=== PATIENT | male | born 1965 | race Caucasian/White ===

== ENCOUNTER 2017-01-17 21:07 | Emergency (ER) | payer SELFPAY ==
--- NOTE | 2017-01-17 22:18 | ED NURSING NOTES ---
Clinical Report - Nurses [facility] [place] [address] 01/17/2017 21:08 Patient: CHIP GREEN TRIAGE Triage time 21:18. Acuity: LEVEL 3. Chief Complaint: Location of symptoms- (Right Thumb laceration). --21:23 Sheriff Alicea R.N. 21:18 01/17/17. BP: 146/98. HR: 94. RR: 20. O2 saturation: 98%. Temp: 97.9 F. Pain level now: 02/24. --21:23 Sheriff Alicea R.N. Weight: 67.1 kg stated. Height/Length: 68 inches Per Patient. BMI: 22.5. --21:22 Sheriff Alicea R.N. Medications Ibuprofen Oral. --21:20 Sheriff Alicea R.N. Allergies Codeine. --21:20 Sheriff Alicea R.N. History Arrived by private vehicle. Historian: patient. Accompanied by family. Injury occurred. Location of injuries: right thumb. Occurred at home. PAST MEDICAL HX: Tetanus status: more than 5 years ago. SURGERY HX: Hernia repair. Inguinal hernia repair. ( Right Leg). SOCIAL HX: Smoker- current status unknown (Chews Tobacco). Occasional alcohol use. No drug use. FALL RISK ASSESSMENT: Fall risk assessment completed. No fall risk identified. NUTRITIONAL RISK ASSESSMENT: The nutritional risk assessment revealed no deficiencies. FUNCTIONAL ASSESSMENT: Functional assessment: no impairments noted. LEARNING NEEDS ASSESSMENT: The learning needs assessment revealed no barriers. SKIN INTEGRITY ASSESSMENT: Skin integrity risk assessment completed. No skin integrity risk identified. --21:23 Sheriff Alicea R.N. PROBLEMS: Hypertension. Lower Extremity Pain. --21:20 Sheriff Alicea R.N. PHYSICAL ASSESSMENT Ambulatory to room. GENERAL / NEURO / PSYCH: Oriented X 4. Alert. Appears in no acute distress. Appears in pain. EXTREMITIES: Right thumb: deep laceration with controlled bleeding. SKIN: Skin intact. Skin is warm and dry. --21:24 Sheriff Alicea R.N. NURSING PROGRESS NOTES Two patient identifiers checked. Call light placed in reach. Side rails up x 2. Bed placed in lowest position. Brakes of bed on. --21:24 Sheriff Alicea R.N. 21:35 01/17/2017 TDAP IM 0.5 mL given. (Lot#: [id number], expiration date: 12/21/2018, Resident Advisor: sanofi pasteur). Given in the left deltoid. Allergies verified and confirmed 5 rights. Vaccine information statement provided to the patient. --21:36 Sheriff Alicea R.N. Applied dressing, following the application of antibiotic ointment. Secured with tube gauze (5510). --22:27 Alis Andrade. DISPOSITION / DISCHARGE No learning barriers present. Discharge instructions provided and reviewed with the patient. Patient verbalized understanding. Written instructions provided in Chinese. The patient was discharged by the physician. He was discharged home and accompanied by family. He left the Emergency Department ambulatory and via private vehicle. Family member driving. --22:34 Sheriff Alicea R.N. Locked/Released at 01/17/2017 22:35 by Sheriff Alicea R.N.
--- NOTE | 2017-01-17 22:18 | ED NURSING NOTES ---
Clinical Report - Nurses [facility] [place] [address] 01/17/2017 21:08 Patient: CIHP GREEN TRIAGE Triage time 21:18. Acuity: LEVEL 3. Chief Complaint: Location of symptoms- (Right Thumb laceration). --21:23 Sheriff Alicea R.N. 21:18 01/17/17. BP: 146/98. HR: 94. RR: 20. O2 saturation: 98%. Temp: 97.9 F. Pain level now: 02/24. --21:23 Sheriff Alicea R.N. Weight: 67.1 kg stated. Height/Length: 68 inches Per Patient. BMI: 22.5. --21:22 Sheriff Alicea R.N. Medications Ibuprofen Oral. --21:20 Sheriff Alicea R.N. Allergies Codeine. --21:20 Sheriff Alicea R.N. History Arrived by private vehicle. Historian: patient. Accompanied by family. Injury occurred. Location of injuries: right thumb. Occurred at home. PAST MEDICAL HX: Tetanus status: more than 5 years ago. SURGERY HX: Hernia repair. Inguinal hernia repair. ( Right Leg). SOCIAL HX: Smoker- current status unknown (Chews Tobacco). Occasional alcohol use. No drug use. FALL RISK ASSESSMENT: Fall risk assessment completed. No fall risk identified. NUTRITIONAL RISK ASSESSMENT: The nutritional risk assessment revealed no deficiencies. FUNCTIONAL ASSESSMENT: Functional assessment: no impairments noted. LEARNING NEEDS ASSESSMENT: The learning needs assessment revealed no barriers. SKIN INTEGRITY ASSESSMENT: Skin integrity risk assessment completed. No skin integrity risk identified. --21:23 Sheriff Alicea R.N. PROBLEMS: Hypertension. Lower Extremity Pain. --21:20 Sheriff Alicea R.N. PHYSICAL ASSESSMENT Ambulatory to room. GENERAL / NEURO / PSYCH: Oriented X 4. Alert. Appears in no acute distress. Appears in pain. EXTREMITIES: Right thumb: deep laceration with controlled bleeding. SKIN: Skin intact. Skin is warm and dry. --21:24 Sheriff Alicea R.N. NURSING PROGRESS NOTES Two patient identifiers checked. Call light placed in reach. Side rails up x 2. Bed placed in lowest position. Brakes of bed on. --21:24 Sheriff Alicea R.N. 21:35 01/17/2017 TDAP IM 0.5 mL given. (Lot#: [id number], expiration date: 12/21/2018, Waste Water Operator: sanofi pasteur). Given in the left deltoid. Allergies verified and confirmed 5 rights. Vaccine information statement provided to the patient. --21:36 Sheriff Alicea R.N. Applied dressing, following the application of antibiotic ointment. Secured with tube gauze ([id number]). --22:27 Alis Andrade. DISPOSITION / DISCHARGE No learning barriers present. Discharge instructions provided and reviewed with the patient. Patient verbalized understanding. Written instructions provided in Malay. The patient was discharged by the physician. He was discharged home and accompanied by family. He left the Emergency Department ambulatory and via private vehicle. Family member driving. --22:34 Sheriff Alicea R.N. Locked/Released at 01/17/2017 22:35 by Sheriff Alicea R.N.
--- NOTE | 2017-01-17 22:18 | ED ORDER SUMMARY ---
..... Patient: CHIP GREEN OrderSheet [facility] VisitID: [id number] [address] [place] [address] 51y, M Registration Date/Time: 01/17/2017 ORDER SHEET Weight: 67.1 kg (stated) Allergies: Codeine GENERAL ORDERS: Wound Set-up: (21:16 01/17/2017 Mile ROSENBERG) (21:54 AScuck) Dress Wounds (22:08 01/17/2017 Mile ROSENBERG) (22:24 Chris) MEDICATION ORDERS: Tdap IM 0.5 mL (per protocol) (21:16 01/17/2017 Mile ROSENBERG) (21:36 Alexis R.N.) IV FLUIDS: ORDER SHEET NOTES: [Electronically signed by Sheriff Ligia Alicea (22:35 01/17/2017)] [Electronically signed by John Hammer MD (03:06 01/29/2017)] [Electronically locked/signed by Sheriff Ligia Alicea (22:35 01/17/2017)]
--- NOTE | 2017-01-17 22:18 | ED CLINICAL REPORT ---
Clinical Report - Physicians/Mid Levels [facility] [address] [place] [address] 01/17/2017 21:08 [id number] Time Seen: 21:15 Jan 17 2017. Arrived- By private vehicle. Historian- patient. CPT: ER phys charges level 3 plus (#694707). HISTORY OF PRESENT ILLNESS Chief Complaint: Injury to the right thumb. The injury happened just prior to arrival. The patient sustained a laceration from a sharp edge. Occurred at home. Patient is experiencing moderate pain. No other injury. REVIEW OF SYSTEMS The patient sustained a laceration. No swelling, tingling, numbness, weakness or foreign body. All systems otherwise negative, except as recorded above. PAST HISTORY See nurses notes. Hernia repair. Inguinal hernia repair. ( Right Leg). Hypertension. Lower Extremity Pain. He has not had a prior injury to the same area. Last tetanus immunization was more than 5 years ago. Medications: Ibuprofen Oral. Allergies: Codeine. SOCIAL HISTORY Never smoker. Occasional alcohol use. No drug use. ADDITIONAL NOTES The nursing notes have been reviewed. PHYSICAL EXAM Vital Signs: 01/17/2017 21:18 BP: 146/98. HR: 94. RR: 20. O2 saturation: 98%. Temp: 97.9 F. Pain level now: 8/10. Appearance: Alert. Anxious. Patient in mild distress. Skin: Skin warm and dry. Extremities: Right thumb: mild tenderness and subcutaneous laceration of the dorsal aspect. SEE LACERATION PROCEDURE NOTE. Neurovascular intact distally. No deformity. No limitation in movement. No wrist injury. Neuro, Vascular and Tendons: Vascular status intact. Sensation intact. Motor intact. Tendon function intact. Neuro: Oriented X 3. No motor deficit. No sensory deficit. PROGRESS AND PROCEDURES Laceration Repair: Location: right thumb. Length: 2.5cm. Complexity: simple (local anesthesia used and sutured). Wound depth/shape- subcutaneous and linear. Wound is clean. Distal neuro/vascular/tendon status normal. Local anesthesia provided using 2% lidocaine with bicarb. Prepped with Hibiclens. Wound explored, cleansed, irrigated and examined to the base in bloodless field extensively with normal saline. Closure of skin: interrupted 5-0 (3 sutures). Post-procedure: he is stable and there are no complications. Bleeding is controlled and neuro-vascular status is intact distal to the wound. Dressing applied. Tetanus immunization given. Estimated blood loss: 0 mL. Patient/family counseled. Disposition: Discharged. Condition: stable and improved. CLINICAL IMPRESSION Single deep laceration to the right thumb.No foreign body present or right fingernail injury. INSTRUCTIONS Protect wound and keep wound area clean. Change dressing twice daily. Keep wounds dry. You may wash wounds briefly, then dry. Apply neosporin twice daily. Sutures should be removed in seven days. Limit use of your right hand until better. Your Current Medications: STOP TAKING THE FOLLOWING MEDICATIONS: Ibuprofen Oral. OTC Medications: Acetaminophen (available over the counter): take according to label instructions. Follow-up: Follow up with your doctor in one week. Call for an appointment. Understanding of the discharge instructions verbalized by patient and family. Discharge instructions reviewed with and understanding was verbalized by spouse. (Electronically signed by John Hammer MD 01/29/2017 3:06)
--- NOTE | 2017-01-17 22:18 | ED CLINICAL REPORT ---
Clinical Report - Physicians/Mid Levels [facility] [address] [place] [address] 01/17/2017 21:08 [id number] Time Seen: 21:15 Jan 17 2017. Arrived- By private vehicle. Historian- patient. CPT: ER phys charges level 3 plus (#[id number]). HISTORY OF PRESENT ILLNESS Chief Complaint: Injury to the right thumb. The injury happened just prior to arrival. The patient sustained a laceration from a sharp edge. Occurred at home. Patient is experiencing moderate pain. No other injury. REVIEW OF SYSTEMS The patient sustained a laceration. No swelling, tingling, numbness, weakness or foreign body. All systems otherwise negative, except as recorded above. PAST HISTORY See nurses notes. Hernia repair. Inguinal hernia repair. ( Right Leg). Hypertension. Lower Extremity Pain. He has not had a prior injury to the same area. Last tetanus immunization was more than 5 years ago. Medications: Ibuprofen Oral. Allergies: Codeine. SOCIAL HISTORY Never smoker. Occasional alcohol use. No drug use. ADDITIONAL NOTES The nursing notes have been reviewed. PHYSICAL EXAM Vital Signs: 01/17/2017 21:18 BP: 146/98. HR: 94. RR: 20. O2 saturation: 98%. Temp: 97.9 F. Pain level now: 8/10. Appearance: Alert. Anxious. Patient in mild distress. Skin: Skin warm and dry. Extremities: Right thumb: mild tenderness and subcutaneous laceration of the dorsal aspect. SEE LACERATION PROCEDURE NOTE. Neurovascular intact distally. No deformity. No limitation in movement. No wrist injury. Neuro, Vascular and Tendons: Vascular status intact. Sensation intact. Motor intact. Tendon function intact. Neuro: Oriented X 3. No motor deficit. No sensory deficit. PROGRESS AND PROCEDURES Laceration Repair: Location: right thumb. Length: 2.5cm. Complexity: simple (local anesthesia used and sutured). Wound depth/shape- subcutaneous and linear. Wound is clean. Distal neuro/vascular/tendon status normal. Local anesthesia provided using 2% lidocaine with bicarb. Prepped with Hibiclens. Wound explored, cleansed, irrigated and examined to the base in bloodless field extensively with normal saline. Closure of skin: interrupted 5-0 (3 sutures). Post-procedure: he is stable and there are no complications. Bleeding is controlled and neuro-vascular status is intact distal to the wound. Dressing applied. Tetanus immunization given. Estimated blood loss: 0 mL. Patient/family counseled. Disposition: Discharged. Condition: stable and improved. CLINICAL IMPRESSION Single deep laceration to the right thumb.No foreign body present or right fingernail injury. INSTRUCTIONS Protect wound and keep wound area clean. Change dressing twice daily. Keep wounds dry. You may wash wounds briefly, then dry. Apply neosporin twice daily. Sutures should be removed in seven days. Limit use of your right hand until better. Your Current Medications: STOP TAKING THE FOLLOWING MEDICATIONS: Ibuprofen Oral. OTC Medications: Acetaminophen (available over the counter): take according to label instructions. Follow-up: Follow up with your doctor in one week. Call for an appointment. Understanding of the discharge instructions verbalized by patient and family. Discharge instructions reviewed with and understanding was verbalized by spouse. (Electronically signed by John Hammer MD 01/29/2017 3:06)
--- NOTE | 2017-01-17 22:18 | ED ORDER SUMMARY ---
..... Patient: CHIP GREEN OrderSheet [facility] VisitID: [id number] [address] [place] [address] 51y, M Registration Date/Time: 01/17/2017 ORDER SHEET Weight: 67.1 kg (stated) Allergies: Codeine GENERAL ORDERS: Wound Set-up: (21:16 01/17/2017 Mile ROSENBERG) (21:54 AScuck) Dress Wounds (22:08 01/17/2017 Mile ROSENBERG) (22:24 Chris) MEDICATION ORDERS: Tdap IM 0.5 mL (per protocol) (21:16 01/17/2017 Mile ROSENBERG) (21:36 Alexis R.N.) IV FLUIDS: ORDER SHEET NOTES: [Electronically signed by Sheriff Ligia Alicea (22:35 01/17/2017)] [Electronically signed by John Hammer MD (03:06 01/29/2017)] [Electronically locked/signed by Sheriff Ligia Alicea (22:35 01/17/2017)]
--- NOTE | 2017-01-29 03:06 | ED MED RECONCILIATION SUMMARY ---
Patient: CHIP GREEN Medication Reconciliation Report [facility] VisitID: [id number] [address] [place] [address] 51y, M Registration Date/Time: 01/17/2017 Weight: 67.1 kg Height/Length: 68 in. BMI: 22.5 ALLERGIES: Codeine The patient's Home Medications are listed below: STOP TAKING THE FOLLOWING MEDICATIONS: Ibuprofen Oral The source(s) of the original Home Medication information: Not obtained. The following Medications were given to the patient in the Emergency Department: TDAP [IM] IM 0.5 mL, administered: 01/17/2017 9:35:00 PM The following Medications were prescribed to the patient: Acetaminophen (available over the counter): take according to label instructions. -- John Hammer MD
--- NOTE | 2017-01-29 03:06 | ED MED RECONCILIATION SUMMARY ---
Patient: CHIP GREEN Medication Reconciliation Report [facility] VisitID: [id number] [address] [place] [address] 51y, M Registration Date/Time: 01/17/2017 Weight: 67.1 kg Height/Length: 68 in. BMI: 22.5 ALLERGIES: Codeine The patient's Home Medications are listed below: STOP TAKING THE FOLLOWING MEDICATIONS: Ibuprofen Oral The source(s) of the original Home Medication information: Not obtained. The following Medications were given to the patient in the Emergency Department: TDAP [IM] IM 0.5 mL, administered: 01/17/2017 9:35:00 PM The following Medications were prescribed to the patient: Acetaminophen (available over the counter): take according to label instructions. -- John Hammer MD
--- NOTE | 2017-01-29 03:06 | ED MAR SUMMARY ---
..... Medication Administration Record [facility] [address] [place] [address] Patient: CHIP GEREN Visit ID: [id number] 51y, M Weight: 67.1 kg Height/Length: 68 in BMI: 22.5 ALLERGIES: Codeine Given 21:35 01/17/2017 Sheriff Alicea R.N. Medication Administered: TDAP [IM], Dose: 0.5 mL IM. Medication Ordered: Tdap IM 0.5 mL (per protocol).
--- NOTE | 2017-01-29 03:06 | ED MAR SUMMARY ---
..... Medication Administration Record Merged With [facility] [address] [place] [address] Patient: CHIP GREEN Visit ID: [id number] 51y, M Weight: 67.1 kg Height/Length: 68 in BMI: 22.5 ALLERGIES: Codeine Given 21:35 01/17/2017 Sheriff Alicea R.N. Medication Administered: TDAP [IM], Dose: 0.5 mL IM. Medication Ordered: Tdap IM 0.5 mL (per protocol).
--- NOTE | 2017-01-29 03:06 | ED DISCHARGE INSTRUCTIONS ---
Patient: CHIP GREEN General Instructions [facility] VisitID: [id number] [place] [address] 51y, M Registration Date/Time: 01/17/2017 Single deep laceration to the right thumb.No foreign body present or right fingernail injury. INSTRUCTIONS Protect wound and keep wound area clean. Change dressing twice daily. Keep wounds dry. You may wash wounds briefly, then dry. Apply neosporin twice daily. Sutures should be removed in seven days. Limit use of your right hand until better. Your Current Medications: STOP TAKING THE FOLLOWING MEDICATIONS: Ibuprofen Oral. OTC Medications: Acetaminophen (available over the counter): take according to label instructions. Follow-up: Follow up with your doctor in one week. Call for an appointment. Understanding of the discharge instructions verbalized by patient and family. Discharge instructions reviewed with and understanding was verbalized by spouse. ADDITIONAL INFORMATION Laceration (All Closures) Alaceration is a cut through the skin. This will usually require stitches (sutures) or annamarie if it is deep. Minor cuts may be treated with a surgical tape closure orskin glue. Home care The following guidelines will help you care for your laceration at home: Extremity, face, or trunk wounds Keep the wound clean and dry. If a bandage was applied and it becomes wet or dirty, replace it. Otherwise, leave it in place for the first 24 hours. If stitches or annamarie were used, clean the wound daily. After removing the bandage, wash the area with soap and water. Use a wet cotton swab to loosen and remove any blood or crust that forms. The doctor may prescribe an antibiotic cream or ointment to prevent infection. Do not stop taking this medication until you have finished the prescribed course or the doctor tells you to stop. The doctor may also prescribe medications for pain. Follow the doctors instructions for taking these medications. You may remove the bandage to shower as usual after the first 24 hours, but do not soak the area in water (no swimming) until the stitches or annamarie are removed. If surgical tape was used, keep the area clean and dry. If it becomes wet, blot it dry with a towel. If skin glue was used, do not scratch, rub, or pick at the adhesive film. Do not place tape directly over the film. Do not apply liquid, ointment, or creams to the wound while the film is in place. Do not clean the wound with peroxide and do not apply ointments. Avoid activities that cause heavy sweating until the film has fallen off. Protect the wound from prolonged exposure to sunlight or tanning lamps. You may shower as usual but do not soak the wound in water (no baths or swimming). The film will fall off by itself in 510 days. Scalp wounds During the first two days, you may carefully rinse your hair in the shower to remove blood, glass or dirt particles. After two days, you may shower and shampoo your hair normally. Do not soak your scalp in the tub or go swimming until the stitches or annamarie have been removed. Talk with your doctor before applying any antibiotic ointment to the wound. Mouth wounds Eat soft foods to reduce pain. If the cut is inside of your mouth, clean by rinsing after each meal and at bedtime with a mixture of equal parts water and hydrogen peroxide (do not swallow!). Or, you can use a cotton swab to directly apply hydrogen peroxide onto the cut. Mouth wounds can be painful when eating. You may use an [id number]-[id number] local numbing solution for pain relief. If this is not available, you may use any numbing solution for teething babies. You may apply this directly to the sores with a cotton-tip swab or with your finger. Follow-up care Follow up with your health care provider. Most skin wounds heal within ten days. Mouth and facial wounds heal within five days. However, even with proper treatment, a wound infection may sometimes occur. Therefore, you should check the wound daily for signs of infection listed below. Stitches should be removed from the face within five days; stitches and annamarie should be removed from other parts of the body within 714 days. If dissolving stitches were used in the mouth, these will fall out or dissolve without the need for removal. If tape closures were used, remove them yourself if they have not fallen off after 7 days. Ifskin glue was used, the film will fall off by itself in 510 days. When to seek medical care Get prompt medical attention if any of these occur: Bleeding not controlled by direct pressure Signs of infection, including increasing pain in the wound, increasing wound redness or swelling, or pus coming from the wound Fever of 100.4F (38C) or higher, or as directed by your health care provider Stitches or annamarie come apart or fall out or surgical tape falls off before 7 days Wound edges re-open Bandage Change If the bandage becomes wet or dirty, replace it. Otherwise, leave it in place for the first 24 hours. Then once a day: After removing the bandage, wash the area with soap and water. Use a wet cotton swab to loosen and remove any blood or crust that forms on the wound. After cleaning, apply a thin layer of antibiotic ointment or cream. Reapply the bandage. You may shower as usual after the first 24 hours. If the bandage is on an arm or leg, cover it with a plastic bag rubber banded at both ends before showering. No tub baths or swimming until the bandage is removed and the wound healed (at least 7 days). Laceration (All Closures) Alaceration is a cut through the skin. This will usually require stitches (sutures) or annamarie if it is deep. Minor cuts may be treated with a surgical tape closure orskin glue. Home care The following guidelines will help you care for your laceration at home: Extremity, face, or trunk wounds Keep the wound clean and dry. If a bandage was applied and it becomes wet or dirty, replace it. Otherwise, leave it in place for the first 24 hours. If stitches or annamarie were used, clean the wound daily. After removing the bandage, wash the area with soap and water. Use a wet cotton swab to loosen and remove any blood or crust that forms. The doctor may prescribe an antibiotic cream or ointment to prevent infection. Do not stop taking this medication until you have finished the prescribed course or the doctor tells you to stop. The doctor may also prescribe medications for pain. Follow the doctors instructions for taking these medications. You may remove the bandage to shower as usual after the first 24 hours, but do not soak the area in water (no swimming) until the stitches or annamarie are removed. If surgical tape was used, keep the area clean and dry. If it becomes wet, blot it dry with a towel. If skin glue was used, do not scratch, rub, or pick at the adhesive film. Do not place tape directly over the film. Do not apply liquid, ointment, or creams to the wound while the film is in place. Do not clean the wound with peroxide and do not apply ointments. Avoid activities that cause heavy sweating until the film has fallen off. Protect the wound from prolonged exposure to sunlight or tanning lamps. You may shower as usual but do not soak the wound in water (no baths or swimming). The film will fall off by itself in 510 days. Scalp wounds During the first two days, you may carefully rinse your hair in the shower to remove blood, glass or dirt particles. After two days, you may shower and shampoo your hair normally. Do not soak your scalp in the tub or go swimming until the stitches or annamarie have been removed. Talk with your doctor before applying any antibiotic ointment to the wound. Mouth wounds Eat soft foods to reduce pain. If the cut is inside of your mouth, clean by rinsing after each meal and at bedtime with a mixture of equal parts water and hydrogen peroxide (do not swallow!). Or, you can use a cotton swab to directly apply hydrogen peroxide onto the cut. Mouth wounds can be painful when eating. You may use an [id number]-lltzvck local numbing solution for pain relief. If this is not available, you may use any numbing solution for teething babies. You may apply this directly to the sores with a cotton-tip swab or with your finger. Follow-up care Follow up with your health care provider. Most skin wounds heal within ten days. Mouth and facial wounds heal within five days. However, even with proper treatment, a wound infection may sometimes occur. Therefore, you should check the wound daily for signs of infection listed below. Stitches should be removed from the face within five days; stitches and annamarie should be removed from other parts of the body within 714 days. If dissolving stitches were used in the mouth, these will fall out or dissolve without the need for removal. If tape closures were used, remove them yourself if they have not fallen off after 7 days. Ifskin glue was used, the film will fall off by itself in 510 days. When to seek medical care Get prompt medical attention if any of these occur: Bleeding not controlled by direct pressure Signs of infection, including increasing pain in the wound, increasing wound redness or swelling, or pus coming from the wound Fever of 100.4F (38C) or higher, or as directed by your health care provider Stitches or annamarie come apart or fall out or surgical tape falls off before 7 days Wound edges re-open Laceration, Extremity (Sutures, Annamarie, Or Tape) A laceration is a cut through the skin. This will usually require stitches (sutures) or annamarie if it is deep. Minor cuts may be treated with surgical tape closures. Home care The following guidelines will help you care for your laceration at home: Keep the wound clean and dry. If a bandage was applied and it becomes wet or dirty, replace it. Otherwise, leave it in place for the first 24 hours, then change it once a day or as directed. If stitches or annamarie were used, clean the wound daily: After removing the bandage, wash the area with soap and water. Use a wet cotton swab to loosen and remove any blood or crust that forms. After cleaning, keep the wound clean and dry. Talk with your doctor before applying any antibiotic ointment to the wound. Reapply the bandage. You may remove the bandage to shower as usual after the first 24 hours, but do not soak the area in water (no swimming) until the stitches or annamarie are removed. If surgical tape closures were used, keep the area clean and dry. If it becomes wet, blot it dry with a towel. The doctor may prescribe an antibiotic cream or ointment to prevent infection. Do not stop taking this medication until you have finished the prescribed course or the doctor tells you to stop. The doctor may also prescribe medications for pain. Follow the doctors instructions for taking these medications. If you have chronic liver or kidney disease or ever had a stomach ulcer or GI bleeding, talk with your doctor before using these medicines. Follow-up care Follow up with your health care provider. Most skin wounds heal within ten days. However, an infection may sometimes occur despite proper treatment. Therefore, check the wound daily for the signs of infection listed below. Stitches and annamarie should be removed within 714 days. If surgical tape closures were used, you may remove them after 10 days, if they have not fallen off by then. Notify your doctor if you notice persistent numbness or weakness in the injured extremity. (Note:A radiologist will review any X-rays that were taken. We will notify you of any new findings that may affect your care.) When to seek medical care Get prompt medical attention if any of these occur: Increasing pain in the wound Redness, swelling, or pus coming from the wound Fever of 100.4F (38C) or higher, or as directed by your health care provider If stitches or annamarie come apart or fall out before your next appointment If the surgical tape closures fall off within seven days, or the wound edges re-open Bleeding not controlled by direct pressure You have been given the following additional information: Laceration, All Dressing Change Laceration, All Laceration, Extrem (Suture, Staple, Or Tape) Limit use of your right hand until better. (Electronically signed by John Hammer MD 01/29/2017 3:06)
== END 2017-01-17 22:32 | disposition home or self-care (01) ==
LOC: ED SRH 21:07
DX: S61.011A Laceration without foreign body of right thumb without damage to nail, initial encounter (principal); W26.9XXA Contact with unspecified sharp object(s), initial encounter; Y92.009 Unspecified place in unspecified non-institutional (private) residence as the place of occurrence of the external cause; I10 Essential (primary) hypertension; Z88.5 Allergy status to narcotic agent; Z79.1 Long term (current) use of non-steroidal anti-inflammatories (NSAID); Z23 Encounter for immunization